=== PATIENT | female | born 1990 | race Two or more races ===

== ENCOUNTER 2017-07-11 13:45 | Emergency (ER) | payer SELFPAY ==
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
== END 2017-07-11 16:30 | disposition left against medical advice (07) ==
LOC: ER 13:45
DX: F07.81 Postconcussional syndrome (principal); S20.221A Contusion of right back wall of thorax, initial encounter; X58.XXXA Exposure to other specified factors, initial encounter; Y93.89 Activity, other specified; Y92.89 Other specified places as the place of occurrence of the external cause; Y99.8 Other external cause status
CPT/HCPCS: 71010-TC; 81025-TC; Z7502